=== PATIENT | female | born 1975 | race Caucasian/White ===

== ENCOUNTER 2017-04-18 13:00 | Inpatient (IN) | payer OTHER, BC ==
[2017-04-18] MEDS: oxyCODONE 5MG TAB PO ×2 (14:10→18:20)
[2017-04-18] MEDS ORDERED: LORazepam 0.5 MG TAB PO (15:30)
[2017-04-18] MEDS: GABAPENTIN 300 MG CAP PO ×2 (17:46→20:41)
[2017-04-18 18:18] LABS: BASO % 0.4 % (0.0-1.0); EOS # 0.2 10^3/uL (0.0-0.50); EOS % 3.3 % (0.0-3.0); IMMATURE GRANULOCYTE % 0.5 % (0-0); LYMPH # 1.3 10^3/uL (1.5-4.5); LYMPH % 17.1 % (24.0-44.0); MEAN CORPUSCULAR HEMOGLOBIN 32.8 pg (27.0-33.0); MEAN CORPUSCULAR HGB CONC 32.6 g/dl (32.0-36.5); MEAN CORPUSCULAR VOLUME 100.6 fl (80.0-96.0); MONO # 0.6 10^3/uL (0.0-0.8); MONO % 8.5 % (0.0-5.0); NEUTROPHILS # 5.1 10^3/uL (1.8-7.7); NEUTROPHILS % 70.2 % (36.0-66.0); PLATELET COUNT, AUTOMATED 262 10^3/uL (150-450); RED CELL DISTRIBUTION WIDTH 14.1 % (11.5-14.5); WHITE BLOOD COUNT 7.3 10^3/uL (4.0-10.0)
[2017-04-18 18:35] LABS: ALBUMIN 2.6 GM/DL (3.2-5.2); ALBUMIN/GLOBULIN RATIO 0.74 (1.00-1.93); ALKALINE PHOSPHATASE 66 U/L (45-117); ALT/SGPT 59 U/L (12-78); ANION GAP 8 MEQ/L (8-16); AST/SGOT 69 U/L (7-37); BILIRUBIN,TOTAL 0.7 MG/DL (0.2-1.0); BLOOD UREA NITROGEN 7 MG/DL (7-18); CALCIUM LEVEL 7.9 MG/DL (8.5-10.1); CARBON DIOXIDE LEVEL 28 MEQ/L (21-32); CHLORIDE LEVEL 105 MEQ/L (98-107); CREATININE FOR GFR 0.52 MG/DL (0.55-1.02); GLOMERULAR FILTRATION RATE > 60.0 (>58); GLUCOSE, FASTING 109 MG/DL (70-105); POTASSIUM SERUM 3.7 MEQ/L (3.5-5.1); SODIUM LEVEL 141 MEQ/L (136-145); TOTAL PROTEIN 6.1 GM/DL (6.4-8.2)
[2017-04-18] MEDS: SUCRALFATE SUSP 1GM/10ML UD PO (20:41)
[2017-04-18] MEDS: DOCUSATE SODIUM 100 MG CAP PO (20:41)
[2017-04-18] MEDS: ENOXAPARIN 30 MG/0.3 ML SYR (J1650) SC (20:41)
[2017-04-18] MEDS: SENNA 8.6 MG TAB (SENOKOT) PO (20:41)
[2017-04-18] MEDS: LORazepam 1 MG TAB PO (21:04)
[2017-04-18] MEDS: ACETAMINOPHEN TAB 650MG DOSE (2X325MG) PO (21:05)
[2017-04-18 21:24] LABS: METHADONE URINE NEGATIVE (NEGATIVE)
[2017-04-18 21:27] LABS: CONTROL LINE UCG INT CTR LINE PRESENT
[2017-04-19] MEDS: oxyCODONE 5MG TAB PO ×5 (00:28→18:22)
[2017-04-19] MEDS: ACETAMINOPHEN TAB 650MG DOSE (2X325MG) PO ×3 (03:34→20:45)
[2017-04-19] MEDS: SUCRALFATE SUSP 1GM/10ML UD PO ×4 (05:59→17:11)
[2017-04-19 07:21] LABS: BASO % 0.4 % (0.0-1.0); EOS # 0.3 10^3/uL (0.0-0.50); EOS % 3.6 % (0.0-3.0); IMMATURE GRANULOCYTE % 0.6 % (0-0); LYMPH # 1.1 10^3/uL (1.5-4.5); LYMPH % 14.7 % (24.0-44.0); MEAN CORPUSCULAR HEMOGLOBIN 32.8 pg (27.0-33.0); MEAN CORPUSCULAR HGB CONC 32.6 g/dl (32.0-36.5); MEAN CORPUSCULAR VOLUME 100.6 fl (80.0-96.0); MONO # 0.5 10^3/uL (0.0-0.8); MONO % 7.1 % (0.0-5.0); NEUTROPHILS # 5.3 10^3/uL (1.8-7.7); NEUTROPHILS % 73.6 % (36.0-66.0); PLATELET COUNT, AUTOMATED 279 10^3/uL (150-450); RED CELL DISTRIBUTION WIDTH 14.1 % (11.5-14.5); WHITE BLOOD COUNT 7.2 10^3/uL (4.0-10.0)
[2017-04-19 07:39] LABS: ALBUMIN 2.5 GM/DL (3.2-5.2); ALBUMIN/GLOBULIN RATIO 0.58 (1.00-1.93); ALKALINE PHOSPHATASE 68 U/L (45-117); ALT/SGPT 72 U/L (12-78); ANION GAP 7 MEQ/L (8-16); AST/SGOT 87 U/L (7-37); BILIRUBIN,TOTAL 0.6 MG/DL (0.2-1.0); BLOOD UREA NITROGEN 7 MG/DL (7-18); CALCIUM LEVEL 8.2 MG/DL (8.5-10.1); CARBON DIOXIDE LEVEL 28 MEQ/L (21-32); CHLORIDE LEVEL 106 MEQ/L (98-107); CREATININE FOR GFR 0.48 MG/DL (0.55-1.02); GLOMERULAR FILTRATION RATE > 60.0 (>58); GLUCOSE, FASTING 92 MG/DL (70-105); POTASSIUM SERUM 3.8 MEQ/L (3.5-5.1); SODIUM LEVEL 141 MEQ/L (136-145); TOTAL PROTEIN 6.8 GM/DL (6.4-8.2)
[2017-04-19] MEDS: GABAPENTIN 300 MG CAP PO ×4 (08:25→20:45)
[2017-04-19] MEDS: ENOXAPARIN 30 MG/0.3 ML SYR (J1650) SC ×2 (08:25→20:45)
[2017-04-19] MEDS: buPROPion **XL** TABLET 150MG (WELLBUTRIN XL) PO (08:25)
[2017-04-19] MEDS: DOCUSATE SODIUM 100 MG CAP PO ×2 (08:26→20:45)
[2017-04-19] MEDS: VITAMIN D 1,000 INTERNATIONAL UNITS TABLET PO (08:26)
[2017-04-19] MEDS: PANTOPRAZOLE 40MG TAB (PROTONIX) PO (08:26)
[2017-04-19] MEDS: MULTIVITAMINS/MINERALS THERAP 1 TAB PO (08:26)
[2017-04-19] MEDS: MELOXICAM (MOBIC) 7.5 MG TAB PO (08:26)
[2017-04-19] MEDS: SENNA 8.6 MG TAB (SENOKOT) PO (20:45)
[2017-04-19] MEDS: MIRALAX *UNIT DOSE* 17GM PACKET PO (20:45)
[2017-04-19] MEDS: LORazepam 1 MG TAB PO (21:22)
[2017-04-20] MEDS: oxyCODONE 5MG TAB PO ×5 (00:19→21:11)
[2017-04-20] MEDS: ACETAMINOPHEN TAB 650MG DOSE (2X325MG) PO ×4 (02:42→22:51)
[2017-04-20] MEDS: SUCRALFATE SUSP 1GM/10ML UD PO ×5 (06:02→21:08)
[2017-04-20] MEDS: GABAPENTIN 300 MG CAP PO ×4 (08:39→21:09)
[2017-04-20] MEDS: PANTOPRAZOLE 40MG TAB (PROTONIX) PO (08:39)
[2017-04-20] MEDS: buPROPion **XL** TABLET 150MG (WELLBUTRIN XL) PO (08:39)
[2017-04-20] MEDS: MULTIVITAMINS/MINERALS THERAP 1 TAB PO (08:39)
[2017-04-20] MEDS: VITAMIN D 1,000 INTERNATIONAL UNITS TABLET PO (08:39)
[2017-04-20] MEDS: MELOXICAM (MOBIC) 7.5 MG TAB PO (08:40)
[2017-04-20] MEDS: DOCUSATE SODIUM 100 MG CAP PO ×2 (08:40→21:10)
[2017-04-20] MEDS: ENOXAPARIN 30 MG/0.3 ML SYR (J1650) SC ×2 (08:40→21:08)
[2017-04-20] MEDS: LORazepam 1 MG TAB PO (21:09)
[2017-04-20] MEDS: SENNA 8.6 MG TAB (SENOKOT) PO (21:10)
[2017-04-21] MEDS: oxyCODONE 5MG TAB PO ×4 (05:54→20:16)
[2017-04-21 06:01] LABS: MEAN CORPUSCULAR HEMOGLOBIN 33.2 pg (27.0-33.0); MEAN CORPUSCULAR HGB CONC 32.8 g/dl (32.0-36.5); MEAN CORPUSCULAR VOLUME 101.3 fl (80.0-96.0); PLATELET COUNT, AUTOMATED 344 10^3/uL (150-450); RED CELL DISTRIBUTION WIDTH 14.8 % (11.5-14.5); WHITE BLOOD COUNT 7.4 10^3/uL (4.0-10.0)
[2017-04-21] MEDS: ACETAMINOPHEN TAB 650MG DOSE (2X325MG) PO (08:21)
[2017-04-21] MEDS: ENOXAPARIN 30 MG/0.3 ML SYR (J1650) SC ×2 (08:21→20:15)
[2017-04-21] MEDS: PANTOPRAZOLE 40MG TAB (PROTONIX) PO (08:21)
[2017-04-21] MEDS: SUCRALFATE SUSP 1GM/10ML UD PO ×4 (08:21→20:14)
[2017-04-21] MEDS: buPROPion **XL** TABLET 150MG (WELLBUTRIN XL) PO (08:21)
[2017-04-21] MEDS: MULTIVITAMINS/MINERALS THERAP 1 TAB PO (08:22)
[2017-04-21] MEDS: VITAMIN D 1,000 INTERNATIONAL UNITS TABLET PO (08:22)
[2017-04-21] MEDS: DOCUSATE SODIUM 100 MG CAP PO ×2 (08:22→20:15)
[2017-04-21] MEDS: MELOXICAM (MOBIC) 7.5 MG TAB PO (08:22)
[2017-04-21] MEDS: GABAPENTIN 300 MG CAP PO ×4 (08:22→20:15)
[2017-04-21] MEDS: SENNA 8.6 MG TAB (SENOKOT) PO (20:15)
[2017-04-21] MEDS: LORazepam 1 MG TAB PO (20:16)
[2017-04-22] MEDS: oxyCODONE 5MG TAB PO ×5 (02:10→22:29)
[2017-04-22] MEDS: ACETAMINOPHEN TAB 650MG DOSE (2X325MG) PO ×3 (03:23→16:28)
[2017-04-22] MEDS: ENOXAPARIN 30 MG/0.3 ML SYR (J1650) SC ×2 (08:32→21:11)
[2017-04-22] MEDS: buPROPion **XL** TABLET 150MG (WELLBUTRIN XL) PO (08:32)
[2017-04-22] MEDS: VITAMIN D 1,000 INTERNATIONAL UNITS TABLET PO (08:32)
[2017-04-22] MEDS: SUCRALFATE SUSP 1GM/10ML UD PO ×4 (08:32→21:11)
[2017-04-22] MEDS: MULTIVITAMINS/MINERALS THERAP 1 TAB PO (08:33)
[2017-04-22] MEDS: GABAPENTIN 300 MG CAP PO ×4 (08:33→21:11)
[2017-04-22] MEDS: DOCUSATE SODIUM 100 MG CAP PO ×2 (08:34→21:11)
[2017-04-22] MEDS: PANTOPRAZOLE 40MG TAB (PROTONIX) PO (08:34)
[2017-04-22] MEDS: MELOXICAM (MOBIC) 7.5 MG TAB PO (08:34)
[2017-04-22] MEDS: SENNA 8.6 MG TAB (SENOKOT) PO (21:11)
[2017-04-23] MEDS: oxyCODONE 5MG TAB PO ×4 (04:58→20:44)
[2017-04-23] MEDS: MULTIVITAMINS/MINERALS THERAP 1 TAB PO (07:45)
[2017-04-23] MEDS: DOCUSATE SODIUM 100 MG CAP PO ×2 (07:45→20:43)
[2017-04-23] MEDS: SUCRALFATE SUSP 1GM/10ML UD PO ×4 (07:45→20:43)
[2017-04-23] MEDS: VITAMIN D 1,000 INTERNATIONAL UNITS TABLET PO (07:45)
[2017-04-23] MEDS: buPROPion **XL** TABLET 150MG (WELLBUTRIN XL) PO (07:45)
[2017-04-23] MEDS: GABAPENTIN 300 MG CAP PO ×4 (07:45→20:43)
[2017-04-23] MEDS: PANTOPRAZOLE 40MG TAB (PROTONIX) PO (07:45)
[2017-04-23] MEDS: MELOXICAM (MOBIC) 7.5 MG TAB PO (07:45)
[2017-04-23] MEDS: ACETAMINOPHEN TAB 650MG DOSE (2X325MG) PO ×2 (07:46→17:06)
[2017-04-23] MEDS: ENOXAPARIN 30 MG/0.3 ML SYR (J1650) SC ×2 (07:46→20:42)
[2017-04-23] MEDS: SENNA 8.6 MG TAB (SENOKOT) PO (20:43)
[2017-04-23] MEDS: LORazepam 1 MG TAB PO (22:27)
[2017-04-24] MEDS: oxyCODONE 5MG TAB PO ×5 (02:57→21:25)
[2017-04-24 07:10] LABS: MEAN CORPUSCULAR HEMOGLOBIN 32.9 pg (27.0-33.0); MEAN CORPUSCULAR VOLUME 102.7 fl (80.0-96.0); PLATELET COUNT, AUTOMATED 480 10^3/uL (150-450); RED CELL DISTRIBUTION WIDTH 14.6 % (11.5-14.5); WHITE BLOOD COUNT 6.5 10^3/uL (4.0-10.0)
[2017-04-24] MEDS: SUCRALFATE SUSP 1GM/10ML UD PO ×4 (07:56→21:24)
[2017-04-24] MEDS: ACETAMINOPHEN TAB 650MG DOSE (2X325MG) PO (08:01)
[2017-04-24] MEDS: ENOXAPARIN 30 MG/0.3 ML SYR (J1650) SC ×2 (08:37→21:24)
[2017-04-24] MEDS: MELOXICAM (MOBIC) 7.5 MG TAB PO (08:37)
[2017-04-24] MEDS: DOCUSATE SODIUM 100 MG CAP PO ×2 (08:38→21:00)
[2017-04-24] MEDS: buPROPion **XL** TABLET 150MG (WELLBUTRIN XL) PO (08:38)
[2017-04-24] MEDS: GABAPENTIN 300 MG CAP PO ×4 (08:38→21:25)
[2017-04-24] MEDS: VITAMIN D 1,000 INTERNATIONAL UNITS TABLET PO (08:38)
[2017-04-24] MEDS: PANTOPRAZOLE 40MG TAB (PROTONIX) PO (08:39)
[2017-04-24] MEDS: MULTIVITAMINS/MINERALS THERAP 1 TAB PO (08:40)
[2017-04-24] MEDS: SENNA 8.6 MG TAB (SENOKOT) PO (21:00)
[2017-04-25] MEDS: oxyCODONE 5MG TAB PO ×2 (06:19→11:52)
[2017-04-25] MEDS: SUCRALFATE SUSP 1GM/10ML UD PO (07:54)
[2017-04-25] MEDS: ACETAMINOPHEN TAB 650MG DOSE (2X325MG) PO (07:54)
[2017-04-25] MEDS: PANTOPRAZOLE 40MG TAB (PROTONIX) PO (08:40)
[2017-04-25] MEDS: GABAPENTIN 300 MG CAP PO (08:40)
[2017-04-25] MEDS: ENOXAPARIN 30 MG/0.3 ML SYR (J1650) SC (08:40)
[2017-04-25] MEDS: MELOXICAM (MOBIC) 7.5 MG TAB PO (08:40)
[2017-04-25] MEDS: VITAMIN D 1,000 INTERNATIONAL UNITS TABLET PO (08:41)
[2017-04-25] MEDS: DOCUSATE SODIUM 100 MG CAP PO (08:41)
[2017-04-25] MEDS: buPROPion **XL** TABLET 150MG (WELLBUTRIN XL) PO (08:41)
[2017-04-25] MEDS: MULTIVITAMINS/MINERALS THERAP 1 TAB PO (08:41)
== END 2017-04-25 12:05 | disposition home health service (06) | DRG 862 ==
LOC: M PM&R 13:00
DX: S22.42XD Multiple fractures of ribs, left side, subsequent encounter for fracture with routine healing (principal); D64.9 Anemia, unspecified; S32.502D Unspecified fracture of left pubis, subsequent encounter for fracture with routine healing; S42.102D Fracture of unspecified part of scapula, left shoulder, subsequent encounter for fracture with routine healing; S62.201D Unspecified fracture of first metacarpal bone, right hand, subsequent encounter for fracture with routine healing; S39.0 Injury of muscle, fascia and tendon of abdomen, lower back and pelvis; T79.6XXD Traumatic ischemia of muscle, subsequent encounter; F34.1 Dysthymic disorder; F17.210 Nicotine dependence, cigarettes, uncomplicated; F10.20 Alcohol dependence, uncomplicated; Z88.5 Allergy status to narcotic agent; Z91.048 Other nonmedicinal substance allergy status; V47.0XXD Car driver injured in collision with fixed or stationary object in nontraffic accident, subsequent encounter; Y92.410 Unspecified street and highway as the place of occurrence of the external cause; Y93.89 Activity, other specified; Y99.9 Unspecified external cause status; Z98.84 Bariatric surgery status; Z79.899 Other long term (current) drug therapy; S32.119D Unspecified Zone I fracture of sacrum, subsequent encounter for fracture with routine healing